=== PATIENT | female | born 1950 | race Caucasian/White ===

== ENCOUNTER 2017-03-07 11:51 | Day surgery (SDC) | payer MEDICARE ==
[~2017-03-07] VITALS: Ht 157.5 cm; Wt 77.8 kg
[2017-03-07] MEDS ORDERED: TURM500C4 PO (12:47)
[2017-03-07] MEDS ORDERED: GABA-827 PO (12:47)
[2017-03-07] MEDS ORDERED: LACTATED RINGERS 1,000 ML IV SCH (12:47)
[2017-03-07] MEDS ORDERED: TRIA1CAP3 PO (12:47)
[2017-03-07] MEDS ORDERED: CHOL100011 PO (12:47)
[2017-03-07] MEDS ORDERED: HYDR200T PO (12:47)
[2017-03-07] MEDS ORDERED: RANI150T4 PO (12:47)
[2017-03-07] MEDS ORDERED: FOLI-17 PO (12:47)
[2017-03-07] MEDS ORDERED: CALCIUM CITRATE (12:47)
[2017-03-07] MEDS ORDERED: ESTR1TAB17 PO (12:47)
[2017-03-07] MEDS ORDERED: TOFA5TAB PO (12:47)
[2017-03-07] MEDS ORDERED: VITA400C43 PO (12:47)
[2017-03-07 12:51] VITALS: BP 132/75
[2017-03-07] MEDS ORDERED: PLEASE ENTER HEIGHT AND WEIGHT MC SCH (13:00)
[2017-03-07] MEDS ORDERED: PROPOFOL 10 MG/ML, 20ML ONE (13:37)
[2017-03-07] MEDS ORDERED: SUCCINYLCHOLINE 20 MG/ML, 10ML ONE ×3 (13:38)
[2017-03-07] MEDS ORDERED: ROCURONIUM 10 MG/ML,10ML ONE (13:38)
[2017-03-07] MEDS ORDERED: FENTANYL PF 100 MCG/2ML ONE (13:38)
[2017-03-07] MEDS ORDERED: ONDANSETRON 2MG/ML, 2ML ONE (13:52)
[2017-03-07] MEDS ORDERED: HYDROmorphone 1 MG/ML, 1ML IV PRN (14:00)
[2017-03-07] MEDS ORDERED: ONDANSETRON 2MG/ML, 2ML IVPush PRN (14:00)
[2017-03-07] MEDS ORDERED: ALBUTEROL SULFATE 2.5 MG/3 ML NPPB PRN (14:00)
[2017-03-07] MEDS ORDERED: EPHEDRINE 50 MG/ML, 1ML IVPush PRN (14:00)
[2017-03-07] MEDS ORDERED: hydrALAzine 20 MG/ML, 1ML IV PRN (14:00)
[2017-03-07] MEDS ORDERED: FENTANYL PF 100 MCG/2ML IV PRN (14:00)
[2017-03-07] MEDS ORDERED: OXYcodone 5 MG/5 ML ORAL.SOL UDC PO PRN (14:00)
[2017-03-07] MEDS ORDERED: ACETAMINOPHEN 325 MG TABLET PO PRN (14:00)
[2017-03-07] MEDS ORDERED: METOCLOPRAMIDE 5 MG/ML, 2ML IV PRN (14:00)
[2017-03-07] MEDS ORDERED: METOPROLOL 1 MG/ML, 5ML IV PRN (14:00)
[2017-03-07] MEDS ORDERED: LABETALOL 5MG/ML, 20ML IV PRN (14:00)
[2017-03-07] MEDS ORDERED: HYDROcodone/APAP 7.5-325MG/15ML UDC PO PRN (14:00)
== END 2017-03-07 16:15 ==
LOC: OUT 11:51
PROVIDERS: ATTEND Internal Medicine
DX: K31.89 Other diseases of stomach and duodenum (principal); I10 Essential (primary) hypertension; D17.79 Benign lipomatous neoplasm of other sites; Z88.6 Allergy status to analgesic agent; Z88.0 Allergy status to penicillin
CPT/HCPCS: 43237; 43251; 88305; 93005; J0330; J2405; J2704; J3010; J7120